=== PATIENT | female | born 1975 | race Caucasian/White ===

== ENCOUNTER 2019-02-04 08:46 | Emergency (ER) | payer BC ==
[2019-02-04] MEDS ORDERED: Bacitracin 1 PK ONE (09:58)
--- NOTE | 2019-02-04 10:32 | RAD ---
LEFT HAND THREE VIEWS: INDICATIONS: Animal bite to left hand. FINDINGS: The carpals, metacarpals and phalanges appear unremarkable. No osseous abnormality identified. No s oft tissue abnormality identified. IMPRESSION: No acute finding. POS: OFF
== END 2019-02-04 10:16 | disposition home or self-care (01) ==
LOC: SCSER 08:46
DX: S61.251A Open bite of left index finger without damage to nail, initial encounter (principal); W53.21XA Bitten by squirrel, initial encounter

== ENCOUNTER 2023-01-31 07:04 | Outpatient (CLI) | payer BC | END 2023-01-31 07:05 | disposition home or self-care (01) | LOC: BICULT 07:04 | PROVIDERS: ATTEND Family Medicine | DX: K76.89 Other specified diseases of liver (principal); K82.4 Cholesterolosis of gallbladder | CPT/HCPCS: 76705 ==

== ENCOUNTER 2025-04-24 11:00 | Outpatient (CLI) | payer BC | END 2025-04-24 11:01 | disposition home or self-care (01) | LOC: SCSRAD 11:00 | PROVIDERS: ATTEND Chiropractor | DX: M41.9 Scoliosis, unspecified (principal); M43.9 Deforming dorsopathy, unspecified | CPT/HCPCS: 72081 ==